=== PATIENT | male | born 1970 | race Caucasian/White ===

== ENCOUNTER 2021-08-30 08:43 | Emergency (ER) | payer MEDICAID, SELFPAY ==
[2021-08-30 08:46] VITALS: BP 182/97; PULSE 83; RESP 17; TEMP 36.9; O2SAT 96; BMI 33.4
--- NOTE | 2021-08-30 08:58 | XR_ITS ---
WS: [id number] XR chest 1V portable [id number] REASON FOR EXAM: dyspnea/cough FINDINGS: No previous examination for comparison. Moderate ectasia and tortuosity of the thoracic aorta. Normal heart size. Calcified granulomatous disease in both hemithoraces. No definite active pulmonary parenchymal or pleural disease. Mild degenerative changes in the mid and lower thoracic spine. XR/XR chest 1V portable [id number] IMPRESSION: No acute chest abnormality identified.
[2021-08-30 09:09] VITALS: BP 154/110; PULSE 82; TEMP 37.4; O2SAT 95
--- NOTE | 2021-08-30 09:22 | W.ED.URI ---
HPI - URI/Sore Throat General: Chief Complaint: Upper Respiratory Infection Stated Complaint: Chest Congestion Time Seen by Provider: 08/30/21 08:51 History of Present Illness: HPI Narrative: 51-year-old male presents emergency room with cough for the last 4 days increasing congestion. He has a history of Covid, he was diagnosed 6 months ago did receive monoclonal antibodies whether did fairly well. He is concerned because of having more respiratory symptoms with that history. He is a smoker states he quit 2 days ago. He has been having moderately productive cough and low-grade fever. MD elicited complaint: fever and cough Onset (ago): day(s) Consistency: constant Severity: mild Description of mucous: clear Exacerbating factors: nothing Relieving factors: nothing Associated symptoms: Reports congestion, cough, nasal congestion and short of breath; Deny abdominal pain, change in voice, chills, chest pain, diarrhea, epistaxis, ear or mastoid pain, fever(s), headache(s), myalgias, nausea, rash, rhinorrhea, stiffness, sore throat or vomiting Treatments prior to arrival: none Review of Systems Const: Denies: fever(s) or chills ENMT: Reports: nasal congestion; Denies: ear or mastoid pain or epistaxis Card: Denies: chest pain Resp: Denies: dyspnea, productive cough or non-productive cough GI: Denies: abdominal pain, nausea, vomiting or diarrhea : Denies: flank pain, dysuria, urinary frequency or urinary urgency Skin/Breast: Denies: rash or pruritus Neuro: Denies: headache(s) Physical Exam Const: COMMON NORMALS: no acute distress GENERAL APPEARANCE: cooperative and comfortable ORIENTATION/CONSCIOUSNESS: Yes awake, Yes oriented to person, Yes oriented to place and Yes oriented to time HENMT: COMMON NORMALS: normocephalic, atraumatic and hearing grossly normal bilaterally HEAD & SCALP: normocephalic and atraumatic Neck/C-Spine: COMMON NORMALS: no JVD Resp: AUSCULTATION: rhonchi (Lower mild) and wheezes Cardio: COMMON NORMALS: no JVD, regular rate, regular rhythm and No murmurs present (Cardio) RATE: regular rate RHYTHM: regular rhythm GI: COMMON NORMALS: Soft to palpation and No hepatosplenomegaly present AUSCULTATION: Yes normoactive bowel sounds PALPATION: Yes Soft to palpation, No Tenderness to palpation present (GI), No Guarding due to palpation present (GI) and Yes No hepatosplenomegaly present Extremity: COMMON NORMALS: normal to inspection, capillary refill normal, no clubbing, cyanosis or edema, no calf tenderness and no pedal edema Neuro: SENSORIUM/ORIENTATION: Yes oriented to person, Yes oriented to place and Yes oriented to time Skin: COMMON NORMALS: no rashes or lesions noted GENERAL SKIN EXAM: no rashes or lesions noted Course Vital Signs: Vital signs: Vital Signs Temperature 99.4 F 08/30/21 09:09 Pulse Rate 82 08/30/21 09:09 Respiratory Rate 17 08/30/21 08:46 Blood Pressure 154/110 08/30/21 09:09 Pulse Oximetry 95 08/30/21 09:09 MDM - URI/Sore Throat MDM Narrative: Medical decision making narrative: Chest x-ray reviewed. No acute infiltrates. Start on doxycycline Medrol Dosepak albuterol. Follow-up if not improving Discharge Plan Discharge Patient Disposition: Home Clinical Impression: Bronchitis Condition: Stable Prescriptions: New doxycycline hyclate 100 mg capsule 100 mg PO BID 10 Days Qty: 20 RF: 0 Medrol (Zac) 4 mg tablets,dose pack See Rx Instructions .ROUTE .COMPLEX Qty: 21 RF: 0 albuterol sulfate 90 mcg/actuation HFA aerosol inhaler 2 inh INHALATION Q4H PRN (Reason: shortness of breath or wheezing) Qty: 18 RF: 0 Discharge Orders: Discharge ED (Routine); Ordered 08/30/21 Ordered By: Lukasz Diego Patient Instructions: Opioid Safety Coding Level of Care Code ED Molecular Genetic Pathologist for Deepak Tan
== END 2021-08-30 09:32 | disposition home or self-care (01) ==
PROVIDERS: Emergency Provider Family Medicine
DX: J40 Bronchitis, not specified as acute or chronic (principal)
CPT/HCPCS: 71045; 87070; 87205; 99282